=== PATIENT | male | born 1965 | race Caucasian/White ===

== ENCOUNTER 2024-06-23 15:54 | Emergency (ER) | payer SELFPAY ==
[2024-06-23 15:57] VITALS: BP 184/124
[2024-06-23 16:30] LABS: % Basophils 0.9 % (0-2); % Eosinophils 0.3 % (0-6); % Immature Granulocytes 0.5 % (0-0.5); % Lymphocytes 32.7 % (20.5-51.1); % Monocytes 9.9 % (1.7-9.3); % Neutrophils 55.7 % (42.2-75.2); Absolute Basophils 0.1 10^3/uL (0-0.2); Absolute Immature Granulocytes 0.1 10^3/uL (0-0.05); Absolute Lymphocytes 3.9 10^3/uL (1.2-3.4); Absolute Monocytes 1.2 10^3/uL (0.1-0.6); Absolute Neutrophils 6.6 10^3/uL (1.4-6.5); Hematocrit 41.7 % (39.0-52.0); Hemoglobin 14.7 g/dL (13.0-18.0); Mean Corp Hgb Conc. 35.3 g/dL (33.0-37.0); Mean Corpuscular Hgb 32.2 pg (27.0-31.0); Mean Corpuscular Volume 91.4 fL (80.0-94.0); Mean Platelet Volume 9.7 fL (7.4-10.4); Nucleated Red Blood Cells % 0 % (-); Platelet Count 226 10^3/uL (130-400); Red Blood Cell Count 4.56 10^6/uL (4.70-6.10); Red Cell Dist. Width 12.5 % (11.5-14.5); White Blood Cell Count 11.8 10^3/uL (4.8-10.8)
[2024-06-23 16:41] LABS: ALT (SGPT) 104 U/L (0-50); AST (SGOT) 76 U/L (17-59); Albumin 4.5 g/dl (3.5-5.0); Alkaline Phosphatase 55 U/L (38-126); Blood Urea Nitrogen 26 mg/dl (9-20); Calcium 9.8 mg/dl (8.4-10.2); Carbon Dioxide 26 mmol/L (22-30); Chloride 98 mmol/L (98-107); Glucose 315 mg/dl (70-99); Potassium 4.3 mmol/L (3.5-5.1); Sodium 136 mmol/L (135-145); Total Bilirubin 0.5 mg/dl (0.2-1.3); Total Protein 7.1 g/dl (6.3-8.2); eGFR > 60.00
[2024-06-23 17:39] VITALS: BP 174/116
[2024-06-23 17:40] VITALS: BMI 29.1
--- NOTE | 2024-06-23 18:06 | ED.GENMED ---
History of Present Illness
General
Chief Complaint: Blood Pressure Problem
Source: patient
Exam Limitations: none
Time Seen by Provider: 06/23/24 17:15
Nursing documentation reviewed up to this point in time: agreed with
History of Present Illness
History of Present Illness:
4-year-old male past medical history of hypertension GERD presenting to the emergency department today with concerns of elevated blood pressure when he went to urgent care 7 days ago. Coming to the ER for further assessment of this. Denies any
chest pain shortness of breath or headache. He was diagnosed with bronchitis 1 week ago with started on steroid and inhaler. He also had a large meal yesterday for Thanksgiving.
Past History
Past History
ED Past Medical History: Negative CAD or IDDM
ED Past Surgical History: Negative Appendectomy or Bowel resection
Social History
Tobacco: Non-smoker
Alcohol: Occasional
Drug: None
Personal:
Living: with family
Employment: Employed
Family History
Family History: Other (Noncontributory)
Review of Systems
Review of Systems
Allergies reviewed?: Yes
All Other Systems: ROS reviewed and negative except as documented in HPI and ROS
Phy Exam
Physical Exam
Physical Exam:
GENERAL: Alert , in no apparent distress
EYE: pupils equal and reactive
NECK: Supple, no significant adenopathy.
ENT: o/p clr, mmm.
CARDIAC: Regular rate and rhythm .
LUNGS: Clear breath sounds bilaterally, no acute respiratory distress, no wheezes/rales/rhonchi
ABDOMEN: Soft, without focal tenderness, no r/g, no cvat
NEUROLOGICAL: Alert and oriented, no focal neuro deficits
SKIN: Warm and dry, skin intact.
MUSCULOSKELETAL: No edema, well perfused.
PSYCH: Normal and appropriate interaction.
Course
Orders/Labs/Results
Orders:
Orders
06/23/24 16:01
Electrocardiogram (*1) Urgent
Reason for Study: Hypertension, Benign
EKG- Treatment ONCE
06/23/24 16:12
Complete Blood Count/With Diff Urgent
Comprehensive Metabolic Panel Urgent
Abnormal Lab Results
06/23/24
16:12
WBC 11.8 H 10^3/uL
(4.8-10.8)
RBC 4.56 L 10^6/uL
(4.70-6.10)
MCH 32.2 H pg
(27.0-31.0)
Abs Immat Gran (auto) 0.1 H 10^3/uL
(0-0.05)
Absolute Neuts (auto) 6.6 H 10^3/uL
(1.4-6.5)
Absolute Lymphs (auto) 3.9 H 10^3/uL
(1.2-3.4)
Absolute Monos (auto) 1.2 H 10^3/uL
(0.1-0.6)
Monocytes % 9.9 H %
(1.7-9.3)
BUN 26 H mg/dl
(9-20)
Glucose 315 H mg/dl
(70-99)
AST 76 H U/L
(17-59)
ALT 104 H U/L
(0-50)
06/23/24 16:12
06/23/24 16:12
Vital Signs
Initial and Last Documented VS:
Initial Vital Signs
Temp Pulse Resp BP Pulse Ox
98.0 F 105 19 184/124 97
06/23/24 15:57 06/23/24 15:57 06/23/24 15:57 06/23/24 15:57 06/23/24 15:57
Last Documented Vital Signs
Temp Pulse Resp BP Pulse Ox
98.0 F 105 19 174/116 97
06/23/24 15:57 06/23/24 15:57 06/23/24 15:57 06/23/24 17:39 06/23/24 17:47
MDM/Problems Addressed
MDM/Problems Addressed:
58-year-old male presenting to the emergency department with concerns of elevated blood pressure. He claims that he has been on prednisone and inhaler for bronchitis that he was diagnosed with 1 week ago at urgent care. Blood pressure was elevated
at the time was told to see his primary care doctor. He is currently on losartan 50 mg daily but was told to take 100 mg daily. He is currently take metformin once daily instead of twice daily as well. Here his white count of 11.8 likely
secondary to the prednisone use slight elevation of liver function test and glucose was 315 however likely secondary to the prednisone use as well. Has not been drinking much free water he claims. Did drink a large meal yesterday larger than
usual. Patient without any emergent findings at this point. He was advised to decrease sugar intake increase free water intake and to increase his losartan dose to 100 mg daily and follow-up closely with his primary care doc within the next week
or 2 for reassessment to ensure this is improving. Return precautions given.
*Critical Care Note
Total Time (30-74mins, 75-104mins- exclusive of procedures): Not Applicable
ED Attending Note
-
Portions of this chart may have been created with voice recognition software.� Occasional wrong word or��sound alike� substitutions may have occurred due to the inherent limitations of voice recognition software.
Discharge Plan
Departure
Patient Disposition: Home (Routine Discharge)
Date of Disposition: 06/23/24
Time of Disposition: 18:08
Patient with high blood pressure during this ER visit?: No
Condition: Good
Covid-19: Not Applicable
Discharge Problem:
High blood pressure, Elevated liver function tests, Acute hyperglycemia
Instructions: High Blood Pressure (DC)
Prescriptions:
New
losartan 100 mg tablet
100 mg PO DAILY 14 Days Qty: 14 0RF
No Action
escitalopram oxalate 10 MG tablet
10 mg PO DAILY
doxycycline hyclate 100 mg capsule
100 mg PO BID
prednisone 20 mg tablet
40 mg PO BID
albuterol sulfate 90 mcg/actuation HFA aerosol inhaler
2 puff INHALATION R QIDPRN PRN (Reason: sob/wheezing)
lamotrigine 100 mg tablet
100 mg PO DAILY
losartan 25 MG tablet
50 mg PO DAILY
Referrals:
Hosea Kate I., DO [Family Provider] -
Activity Restrictions/Additional Instructions:
You came to the emergency department today with concerns of elevated blood pressure. Here your blood pressure was elevated in 170s over 110s. Please increase your blood pressure medication to 100 mg daily of losartan. Please significantly
decrease sodium intake increase your free water intake and discontinue the prednisone. Additionally your sugar was elevated in the 300s. Please decrease significant sugar intake. You had slight elevation of your liver function test. This should
be repeated in the next week or 2 by the primary care doctor. Return for any worsening, new or concerning symptoms.
Interventions
Interventions:
*Risk Screen - Suicide Last Done: 06/23/24 17:40
*General Assessment Last Done: 06/23/24 17:40
*Neglect/Abuse Screening Last Done: 06/23/24 17:40
ED- Fall Risk Assessment Last Done: 06/23/24 17:40
*ED COVID-19 Vaccine History Last Done: 06/23/24 17:40
ED- Cardiac Assessment Last Done: 06/23/24 17:40
ED- Neurological Assessment Last Done: 06/23/24 17:40
ED- Pulmonary Assessment Last Done: 06/23/24 17:40
Discharge Date and Time
Print Language: TOGOLESE
== END 2024-06-23 18:35 | disposition home or self-care (01) ==
LOC: EMR 15:54
PROVIDERS: EMERGENCY PHYSICIAN Student in an Organized Health Care Education/Training Program; FAMILY PHYSICIAN Internal Medicine
DX: I10 Essential (primary) hypertension (principal); R79.89 Other specified abnormal findings of blood chemistry; R73.9 Hyperglycemia, unspecified; K21.9 Gastro-esophageal reflux disease without esophagitis; Z90.49 Acquired absence of other specified parts of digestive tract
CPT/HCPCS: 99283; 80053; 85025; 93005